=== PATIENT | female | born 1935 | race Two or more races ===

== ENCOUNTER 2022-03-19 21:49 | Inpatient (IN) | payer OTHER, MEDICAID ==
[~2022-03-19] VITALS: Ht 162.6 cm; Wt 65.5 kg
[2022-03-19] MEDS ORDERED: CLOPIDOGREL BISULFATE 75 MG TAB PO ONE (22:15)
[2022-03-19] MEDS ORDERED: ASPirin 81 mg TAB PO ONE (22:15)
[2022-03-19] MEDS ORDERED: HEPARIN SODIUM (PORCINE) 5000 UNITS/ML 1ML VIAL IV ONE (22:15)
[2022-03-19] MEDS ORDERED: CLOPIDOGREL BISULFATE 75 MG TAB ONE (22:22)
[2022-03-19] MEDS ORDERED: fentaNYL CITRATE 100 MCG/2 ML VL ONE (22:37)
[2022-03-19] MEDS ORDERED: ANGIOMAX 250 MG VIAL IV ONE (22:37)
[2022-03-19] MEDS ORDERED: LIDOCAINE 2%HCL (LOCAL ANESTH.) INJ 10ml MDV ONE (22:38)
[2022-03-19] MEDS ORDERED: MIDAZOLAM HCL 2MG/2ML 2ml VIAL (1mg/ml) ONE (22:38)
[2022-03-19] MEDS ORDERED: SODIUM CHL 0.9% 50 ML ONE (22:38)
[2022-03-19 22:42] LABS: Basophils # (auto) 0 10 ^3/uL (0-0.2); Basophils % (auto) 0.2 % (0.0-2.0); Eosinophils # (auto) 0 10 ^3/uL (0-0.8); Eosinophils % (auto) 0.4 % (0.0-7.0); Hematocrit 38.1 % (36.0-46.0); Hemoglobin 12.2 g/dL (12.2-16.2); Lymphocytes % (auto) 20.5 % (10.0-50.0); Mean Corpuscular Hemoglobin 27.4 pg (28.0-32.0); Mean Corpuscular Hgb Conc. 32.1 g/dL (32.0-36.0); Mean Corpuscular Volume 85.4 fL (80.0-100.0); Monocytes # (auto) 0.4 10 ^3/uL (0-1.3); Monocytes % (auto) 3.9 % (0.0-12.0); Neutrophils # (auto) 7.3 10 ^3/uL (1.6-8.6); Red Blood Cells 4.46 10^6/uL (4.0-5.20); Red Cell Distribution Width 14.9 % (11.8-14.3); White Blood Cell 9.7 10^3/uL (4.4-10.8)
[2022-03-19 22:56] LABS: Albumin 4.3 g/dL (3.4-5.0); Calcium 9.6 mg/dL (8.5-10.1); Potassium 3.8 mmol/L (3.5-5.1)
[2022-03-19 22:58] LABS: BUN/Creatinine Ratio 17.6
[2022-03-19 23:00] LABS: Bilirubin, Total 0.5 mg/dL (0.2-1.0); INR 0.95 (0.9-1.15); Partial Thromboplastin Time 22.2 sec (24.6-33.4); Total Protein 7.6 g/dL (6.4-8.2)
[2022-03-20] MEDS ORDERED: HYDROcodone-ACET 5/325MG TAB PO PRN
[2022-03-20] MEDS ORDERED: ONDANSETRON HCL 4 MG/2 ML VIAL IV PRN
[2022-03-20] MEDS ORDERED: ACETAMINOPHEN 325 MG TAB PO PRN
[2022-03-20] MEDS ORDERED: DOCUSATE SOD 100 MG CAP PO PRN
[2022-03-20] MEDS ORDERED: DEXTROSE (50%) 50ML SYRG IV PRN
[2022-03-20] MEDS ORDERED: NITROGLYCERIN 0.4 MG SL TAB SL PRN (00:15)
[2022-03-20] MEDS ORDERED: MORPHINE SULFATE INJ 2 MG/ml SYRG IV PRN (00:15)
[2022-03-20] MEDS ORDERED: IODIXANOL 320MG/ML 100ML BTL IV ONE (00:30)
[2022-03-20 01:21] VITALS: BP 112/68
[2022-03-20] MEDS ORDERED: LEVO25TA6 PO (01:47)
[2022-03-20] MEDS ORDERED: METF-370 PO (01:47)
[2022-03-20 05:00] VITALS: BP 135/82
[2022-03-20] MEDS: SODIUM CHLOR 0.9% PF (SALINE LOCK) 10ML VIAL/SYR IV SCH ×3 (06:25→23:46)
[2022-03-20] MEDS: InsuLIN REG 1unit/0.01ml Soln (100units/ml) SC SCH ×3 (06:31→17:32)
[2022-03-20] MEDS: ACCU-CHEK COMFORT CURVE STRIP VI SCH ×4 (06:33→23:46)
[2022-03-20 07:06] LABS: Basophils # (auto) 0 10 ^3/uL (0-0.2); Basophils % (auto) 0.6 % (0.0-2.0); Eosinophils # (auto) 0 10 ^3/uL (0-0.8); Hematocrit 35.8 % (36.0-46.0); Hemoglobin 11.7 g/dL (12.2-16.2); Lymphocytes % (auto) 12.7 % (10.0-50.0); Mean Corpuscular Hemoglobin 27.6 pg (28.0-32.0); Mean Corpuscular Hgb Conc. 32.6 g/dL (32.0-36.0); Mean Corpuscular Volume 84.6 fL (80.0-100.0); Monocytes # (auto) 0.4 10 ^3/uL (0-1.3); Monocytes % (auto) 5.4 % (0.0-12.0); Neutrophils # (auto) 6.3 10 ^3/uL (1.6-8.6); Neutrophils % (auto) 81.3 % (37.0-80.0); Nucleated Red Blood Cells % 0.1 %; Red Blood Cells 4.23 10^6/uL (4.0-5.20); White Blood Cell 7.7 10^3/uL (4.4-10.8)
[2022-03-20 07:26] LABS: Potassium 3.9 mmol/L (3.5-5.1)
[2022-03-20 07:31] LABS: Albumin 3.9 g/dL (3.4-5.0); BUN/Creatinine Ratio 17.6; Bilirubin, Total 0.7 mg/dL (0.2-1.0); Total Protein 7.4 g/dL (6.4-8.2)
[2022-03-20 09:00] VITALS: BP 136/67
[2022-03-20] MEDS: ASPirin 81 mg TAB PO SCH (09:21)
[2022-03-20] MEDS: CLOPIDOGREL BISULFATE 75 MG TAB PO SCH (09:26)
[2022-03-20] MEDS ORDERED: FAMOTIDINE (10MG/ML) 2ML VL IV SCH (10:00)
[2022-03-20] MEDS ORDERED: ASPirin 81 mg TAB PO SCH (10:00)
[2022-03-20] MEDS ORDERED: HEPARIN SODIUM (PORCINE) 5000 UNITS/ML 1ML VIAL SC SCH (10:00)
[2022-03-20] MEDS ORDERED: CLOP75TA70 PO (10:35)
[2022-03-20] MEDS ORDERED: ASPI-325 PO (10:35)
[2022-03-20] MEDS ORDERED: ATO40T PO (10:35)
[2022-03-20] MEDS ORDERED: METO25TA36 PO (10:37)
[2022-03-20] MEDS ORDERED: METOPROLOL SUCCINATE XL 50 MG TAB PO ONE (10:45)
[2022-03-20 11:03] LABS: Basophils # (auto) 0 10 ^3/uL (0-0.2); Basophils % (auto) 0.4 % (0.0-2.0); Eosinophils # (auto) 0 10 ^3/uL (0-0.8); Eosinophils % (auto) 0.1 % (0.0-7.0); Hematocrit 35.5 % (36.0-46.0); Hemoglobin 11.6 g/dL (12.2-16.2); Lymphocytes # (auto) 1.1 10 ^3/uL (0.4-5.4); Mean Corpuscular Hemoglobin 27.4 pg (28.0-32.0); Mean Corpuscular Hgb Conc. 32.5 g/dL (32.0-36.0); Mean Corpuscular Volume 84.3 fL (80.0-100.0); Monocytes # (auto) 0.6 10 ^3/uL (0-1.3); Monocytes % (auto) 7.1 % (0.0-12.0); Neutrophils # (auto) 7.2 10 ^3/uL (1.6-8.6); Neutrophils % (auto) 80.4 % (37.0-80.0); Red Blood Cells 4.22 10^6/uL (4.0-5.20); Red Cell Distribution Width 14.8 % (11.8-14.3)
[2022-03-20 13:00] VITALS: BP 147/79
[2022-03-20 17:00] VITALS: BP 123/64
[2022-03-20 22:00] VITALS: BP 129/66
[2022-03-20] MEDS ORDERED: ATORVASTATIN 20 MG TAB PO SCH (22:00)
[2022-03-20] MEDS ORDERED: InsuLIN REG 1unit/0.01ml Soln (100units/ml) SC SCH (22:00)
[2022-03-21 05:00] VITALS: BP 105/60
[2022-03-21] MEDS: ACCU-CHEK COMFORT CURVE STRIP VI SCH ×2 (06:41→11:30)
[2022-03-21] MEDS: SODIUM CHLOR 0.9% PF (SALINE LOCK) 10ML VIAL/SYR IV SCH (06:41)
[2022-03-21] MEDS: InsuLIN REG 1unit/0.01ml Soln (100units/ml) SC SCH ×2 (06:43→11:30)
[2022-03-21 07:44] LABS: Albumin 3.4 g/dL (3.4-5.0); Potassium 3.9 mmol/L (3.5-5.1)
[2022-03-21 07:48] LABS: BUN/Creatinine Ratio 20.5; Total Protein 6.7 g/dL (6.4-8.2)
[2022-03-21 08:00] VITALS: BP 123/80
[2022-03-21 09:00] VITALS: BP 110/66
[2022-03-21] MEDS: CLOPIDOGREL BISULFATE 75 MG TAB PO SCH (09:34)
[2022-03-21] MEDS: ASPirin 81 mg TAB PO SCH (09:34)
[2022-03-21] MEDS ORDERED: METOPROLOL SUCCINATE XL 50 MG TAB PO SCH (10:00)
[2022-03-21 11:02] VITALS: BP 110/66
== END 2022-03-21 12:40 | disposition home or self-care (01) | DRG 247 ==
LOC: ER 21:49 → TELE 03-20 00:08 → TELE-CENTR 03-20 01:00
PROVIDERS: ADMIT Specialist; ATTEND Internal Medicine
PROC: 027034Z Dilation of Coronary Artery, One Artery with Drug-eluting Intraluminal Device, Percutaneous Approach (ICD-10-PCS; 2022-03-19)
PROC: 02C03ZZ Extirpation of Matter from Coronary Artery, One Artery, Percutaneous Approach (ICD-10-PCS; 2022-03-19)
PROC: B210YZZ Fluoroscopy of Single Coronary Artery using Other Contrast (ICD-10-PCS; 2022-03-19)
PROC: B41FYZZ Fluoroscopy of Right Lower Extremity Arteries using Other Contrast (ICD-10-PCS; 2022-03-19)
PROC: B241ZZ3 Ultrasonography of Multiple Coronary Arteries, Intravascular (ICD-10-PCS; 2022-03-19)
PROC: 4A023N7 Measurement of Cardiac Sampling and Pressure, Left Heart, Percutaneous Approach (ICD-10-PCS; principal; 2022-03-20)
PROC: B211YZZ Fluoroscopy of Multiple Coronary Arteries using Other Contrast (ICD-10-PCS; 2022-03-20)
PROC: B215YZZ Fluoroscopy of Left Heart using Other Contrast (ICD-10-PCS; 2022-03-20)
DX: I21.09 ST elevation (STEMI) myocardial infarction involving other coronary artery of anterior wall (principal); E03.9 Hypothyroidism, unspecified; E11.65 Type 2 diabetes mellitus with hyperglycemia; E78.5 Hyperlipidemia, unspecified; Z20.822 Contact with and (suspected) exposure to COVID-19; Z79.82 Long term (current) use of aspirin; Z79.02 Long term (current) use of antithrombotics/antiplatelets; Z79.899 Other long term (current) drug therapy
CPT/HCPCS: 36415; 71045; 75710; 80053; 82962; 83036; 84443; 84484; 84702; 85025; 85610; 85730; 86850; 86900; 86901; 92929; 92933; 92978; 93005; 93454; 93458; 96361; 96374; 99152; 99153; 99291; C1874; G0378; J1815; J2001; J2250; J2405; J3490; Q9967